=== PATIENT | male | born 1930 | race Caucasian/White ===

== ENCOUNTER 2018-06-10 09:48 | Emergency (ER) | payer MEDICARE, BC ==
[~2018-06-10] VITALS: Ht 172.7 cm; Wt 81.2 kg
[~2018-06-10 09:48] MED LIST: AD60O TOP; AMLO5TAB7 PO; BISO10TA PO; DIGO125T18 PO; GABA-486 PO; GLIP10TA13 PO; INSU100V16 SC; INSU100V5 SQ; LEVE500T6 PO; LEVO125T6 PO; LINA5TAB PO; LISI40TA PO; METF500T8 PO; METH500T7 PO; PRAV40TA2 PO; TORS20TA3 PO; TRAM50TA2 PO; WARF4TAB70 PO
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
[2018-06-10 11:08] VITALS: BP 128/77
== END 2018-06-10 11:08 | disposition home or self-care (01) ==
LOC: EDUNIT# 09:48 → ER 09:50
DX: M86.8X7 Other osteomyelitis, ankle and foot (principal); Z82.49 Family history of ischemic heart disease and other diseases of the circulatory system; Z87.448 Personal history of other diseases of urinary system; Z95.810 Presence of automatic (implantable) cardiac defibrillator; Z87.01 Personal history of pneumonia (recurrent); Z87.820 Personal history of traumatic brain injury; Z87.891 Personal history of nicotine dependence; Z79.4 Long term (current) use of insulin; Z88.2 Allergy status to sulfonamides; Z89.421 Acquired absence of other right toe(s)

== ENCOUNTER 2018-06-14 12:57 | Outpatient (CLI) | payer MEDICARE, BC ==
[~2018-06-14] VITALS: Ht 172.7 cm; Wt 81.2 kg
--- NOTE | 2018-06-14 15:32 | Diagnostic Imaging Report ---
INDICATION: PICC line placement. Portable chest at 02:59 p.m. FINDINGS: Right upper extremity PICC line tip projects over the SVC. 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 Heart size and pulmonary vascularity are normal. There is some consolidation at the left medial lung base. Right lung is clear. IMPRESSION: Left medial basilar consolidation could represent pneumonia. Dictated by: Dictated on workstation # [id number]
[2018-06-14 15:50] VITALS: BP 124/55
== END 2018-06-14 15:50 | disposition home or self-care (01) ==
LOC: SDC 12:57
PROVIDERS: ATTEND Nurse Practitioner
DX: Z45.2 Encounter for adjustment and management of vascular access device (principal); Z79.2 Long term (current) use of antibiotics
CPT/HCPCS: 36569; 71045; 76937

== ENCOUNTER → 2018-06-15 | Outpatient (CLI) | payer MEDICARE, BC | LOC: RAD 11:35 | PROVIDERS: ATTEND Nurse Practitioner | DX: T87.53 Necrosis of amputation stump, right lower extremity (principal); I70.234 Atherosclerosis of native arteries of right leg with ulceration of heel and midfoot; E11.621 Type 2 diabetes mellitus with foot ulcer; L97.509 Non-pressure chronic ulcer of other part of unspecified foot with unspecified severity; Z53.8 Procedure and treatment not carried out for other reasons ==

== ENCOUNTER → 2018-06-15 | Outpatient (CLI) | payer MEDICARE, BC | LOC: WOUNDCARE 09:31 | PROVIDERS: ATTEND Nurse Practitioner | DX: I70.234 Atherosclerosis of native arteries of right leg with ulceration of heel and midfoot (principal); T87.53 Necrosis of amputation stump, right lower extremity; E11.621 Type 2 diabetes mellitus with foot ulcer | CPT/HCPCS: 99214 ==